=== PATIENT | male | born 1985 | race Caucasian/White ===

== ENCOUNTER 2017-03-29 19:36 | Emergency (ER) | payer SELFPAY ==
[~2017-03-29] VITALS: Ht 185.4 cm; Wt 120.2 kg
[~2017-03-29 19:36] MED LIST: AUGMENTIN 500 M1 TAB PO; AUGMENTIN 875875 MG PO; BACTRIM DS 8001 TA1 PO; BACTROBAN OINT0.9 GM; CLINDAMYCIN HC300 MG PO; CLINDAMYCIN300 MG PO; CORTISPORIN SUS10 ML OT; DAYPRO600 M1 PO; DIAZEPAM2 MG PO; EC NAPROSYN500 MG; FLEXERIL10 MG PO; Fioricet 325 MG1 TAB PO; HYDROCODONE BIT1 T11 PO; IBUPROFEN MODE200 MG PO; KEFLEX500 MG PO; MOTRIN800 MG PO; NAPROSYN500 MG PO; NAPROXEN500 MG PO; NKHM; NORCO 325 MG-51 TAB PO; PREDNICOT20 MG PO; ROBAXIN-750750 MG PO; TRAMADOL HCL50 MG PO; TRIMOX500 MG PO; VICODIN 5/500 505 MG PO; VISTARIL50 MG PO; VOLTAREN50 M1 PO
[2017-03-29] MEDS ORDERED: AUGMENTIN 875875 MG PO (20:15)
[2017-03-29] MEDS ORDERED: CLARITIN10 MG PO (20:15)
== END 2017-03-29 20:27 | disposition home or self-care (01) ==
LOC: ED 19:36
DX: J32.9 Chronic sinusitis, unspecified (principal); F17.200 Nicotine dependence, unspecified, uncomplicated; Z98.890 Other specified postprocedural states

== ENCOUNTER 2018-10-31 10:31 | Emergency (ER) | payer SELFPAY ==
[~2018-10-31] VITALS: Ht 185.4 cm; Wt 108.9 kg
[~2018-10-31 10:31] MED LIST changes: +CLARITIN10 MG PO
[2018-10-31] MEDS ORDERED: Motrin,Rufen800 MG PO (11:45)
[2018-10-31] MEDS ORDERED: KEFLEX500 M1 PO (11:45)
== END 2018-10-31 11:45 | disposition home or self-care (01) ==
LOC: ED 10:31
DX: I80.3 Phlebitis and thrombophlebitis of lower extremities, unspecified (principal); Z79.2 Long term (current) use of antibiotics; Z79.899 Other long term (current) drug therapy

== ENCOUNTER 2020-08-11 18:11 | Emergency (ER) | payer SELFPAY ==
[~2020-08-11] VITALS: Ht 185.4 cm; Wt 127.0 kg
[~2020-08-11 18:11] MED LIST changes: +KEFLEX500 M1 PO; +Motrin,Rufen800 MG PO
== END 2020-08-11 22:59 | disposition home or self-care (01) ==
LOC: ED 18:11
DX: S51.812A Laceration without foreign body of left forearm, initial encounter (principal); M79.671 Pain in right foot; Z79.899 Other long term (current) drug therapy; W45.8XXA Other foreign body or object entering through skin, initial encounter; Y93.89 Activity, other specified; Y92.89 Other specified places as the place of occurrence of the external cause; Y99.9 Unspecified external cause status

== ENCOUNTER 2021-11-17 19:38 | Emergency (ER) | payer SELFPAY | END 2021-11-17 20:11 | disposition left against medical advice (07) | LOC: ED 19:38 | DX: Z53.21 Procedure and treatment not carried out due to patient leaving prior to being seen by health care provider (principal) ==

== ENCOUNTER → 2022-02-19 | Outpatient (CLI) | payer SELFPAY | END | disposition home or self-care (01) | LOC: RESCLI 15:45 | PROVIDERS: ATTEND Internal Medicine | DX: I82.409 Acute embolism and thrombosis of unspecified deep veins of unspecified lower extremity (principal); Z98.890 Other specified postprocedural states; Z79.899 Other long term (current) drug therapy ==

== ENCOUNTER → 2022-02-19 | Outpatient (CLI) | payer SELFPAY | END | disposition home or self-care (01) | LOC: CANPRECLI → RESCLI 15:08 | PROVIDERS: ATTEND Internal Medicine | DX: I82.409 Acute embolism and thrombosis of unspecified deep veins of unspecified lower extremity (principal); Z72.89 Other problems related to lifestyle; Z82.49 Family history of ischemic heart disease and other diseases of the circulatory system; Z98.890 Other specified postprocedural states; Z79.01 Long term (current) use of anticoagulants; Z53.9 Procedure and treatment not carried out, unspecified reason ==

== ENCOUNTER → 2022-08-17 | Outpatient (CLI) | payer SELFPAY ==
[~2022-08-17] MED LIST changes: +CYCLOBENZAPRINE10 MG PO; +PREDNISONE50 MG PO
== END | disposition home or self-care (01) ==
LOC: RESCLI 11:34
PROVIDERS: ATTEND Student in an Organized Health Care Education/Training Program
DX: I82.409 Acute embolism and thrombosis of unspecified deep veins of unspecified lower extremity (principal); I10 Essential (primary) hypertension; M54.30 Sciatica, unspecified side; Z79.01 Long term (current) use of anticoagulants; Z98.890 Other specified postprocedural states; Z79.899 Other long term (current) drug therapy

== ENCOUNTER 2023-06-02 20:37 | Emergency (ER) | payer SELFPAY ==
[~2023-06-02] VITALS: Ht 185.4 cm; Wt 127.0 kg
[2023-06-02] MEDS ORDERED: AMOX-CLAV 875-1 EACH PO (20:57)
[2023-06-02] MEDS ORDERED: Amoxicillin/Clavulanate Pota 875 MG TAB PO ONE (21:00)
== END 2023-06-02 21:08 | disposition home or self-care (01) ==
LOC: ED 20:37
DX: H66.92 Otitis media, unspecified, left ear (principal); G43.909 Migraine, unspecified, not intractable, without status migrainosus; Z98.890 Other specified postprocedural states; F17.210 Nicotine dependence, cigarettes, uncomplicated

== ENCOUNTER → 2023-07-27 | Outpatient (CLI) | payer SELFPAY ==
[~2023-07-27] MED LIST changes: +AMOX-CLAV 875-1 EACH PO
== END | disposition home or self-care (01) ==
LOC: RESCLI 14:21
PROVIDERS: ATTEND Internal Medicine Hematology & Oncology
DX: I82.409 Acute embolism and thrombosis of unspecified deep veins of unspecified lower extremity (principal); I10 Essential (primary) hypertension; H66.90 Otitis media, unspecified, unspecified ear; Z82.49 Family history of ischemic heart disease and other diseases of the circulatory system; Z98.890 Other specified postprocedural states

== ENCOUNTER → 2023-08-02 | Outpatient (CLI) | payer SELFPAY | END | disposition home or self-care (01) | LOC: US 16:48 | PROVIDERS: ATTEND Internal Medicine | DX: M71.21 Synovial cyst of popliteal space [Baker], right knee (principal); I82.409 Acute embolism and thrombosis of unspecified deep veins of unspecified lower extremity ==

== ENCOUNTER 2024-02-15 17:18 | Emergency (ER) | payer SELFPAY ==
[~2024-02-15] VITALS: Ht 185.4 cm; Wt 131.5 kg
[2024-02-15] MEDS ORDERED: methylPREDNISolone sod succ 125 MG VIAL IV ONE (18:35)
[2024-02-15] MEDS ORDERED: AZITHROMYCIN 250 ML IV ONE (18:35)
[2024-02-15] MEDS ORDERED: Albuterol Sulf/Ipratropium 3 ML VIAL NEB ONE (18:35)
[2024-02-15 18:49] LABS: BASO % 0.4 % (0.0-1.0); EOS # 0.2 10*3/uL (0.0-0.4); EOS % 4.3 % (1.0-4.0); MEAN CELL VOLUME 88.4 fl (80.0-94.0); MEAN CORPUSCULAR HGB 29.3 pg (27.0-31.0); MEAN CORPUSCULAR HGB CONC 33.2 g/dl (33.0-37.0); MONO # 0.7 10*3/uL (0.1-1.0); MONO % 15.7 % (3.0-9.0); NEUT # 2.2 10*3/uL (2.3-7.9); NEUT % 46.1 % (47.0-73.0); PLATELET COUNT AUTOMATED 190 10*3/uL (130-400); RED BLOOD COUNT 4.98 10*6/uL (4.50-5.90); RED CELL DISTRI WIDTH 12.7 % (0-14.5); WHITE BLOOD COUNT 4.7 10*3/uL (4.8-10.8)
[2024-02-15 20:24] LABS: ALKALINE PHOSPHATASE 61 U/L (46-116); BUN 8 mg/dl (9-23); CHLORIDE 102 mmol/L (98-107); POTASSIUM 4.3 mmol/L (3.4-5.1); SGPT/ALT 29 U/L (5-49); TOTAL PROTEIN 7.3 gm/dL (6.0-8.0)
[2024-02-15] MEDS ORDERED: SODIUM CHLORIDE 0.9% 100 ML BAG IV ONE (20:35)
[2024-02-15] MEDS ORDERED: IOHEXOL 350 MG/ML 100 ML VIAL IV ONE ×2 (20:35→20:54)
[2024-02-15] MEDS ORDERED: SODIUM CHLORIDE 0.9% 100 ML IV ONE (20:54)
== END 2024-02-15 22:39 | disposition left against medical advice (07) ==
LOC: ED 17:18
PROVIDERS: Emergency Medicine
DX: K04.7 Periapical abscess without sinus (principal); J20.9 Acute bronchitis, unspecified; Z86.718 Personal history of other venous thrombosis and embolism; Z20.822 Contact with and (suspected) exposure to COVID-19

== ENCOUNTER → 2024-06-18 | Outpatient (CLI) | payer SELFPAY ==
[~2024-06-18] MED LIST changes: +IOHEXOL 300 MG/ML 100 ML VIAL IV ONE; +IOHEXOL 300 MG/ML 100 ML VIAL ONE
== END | disposition home or self-care (01) ==
LOC: CT 10:00
PROVIDERS: ATTEND Internal Medicine Critical Care Medicine
DX: Z12.2 Encounter for screening for malignant neoplasm of respiratory organs (principal); J45.40 Moderate persistent asthma, uncomplicated; R59.0 Localized enlarged lymph nodes; J43.9 Emphysema, unspecified; K76.0 Fatty (change of) liver, not elsewhere classified; Z87.891 Personal history of nicotine dependence; Z68.38 Body mass index [BMI] 38.0-38.9, adult

== ENCOUNTER → 2025-01-18 | Outpatient (CLI) | payer SELFPAY ==
[~2025-01-18] MED LIST changes: -IOHEXOL 300 MG/ML 100 ML VIAL ONE
[2025-01-18 16:10] LABS: BUN 11 mg/dl (9-23)
== END | disposition home or self-care (01) ==
LOC: CT 01-02 09:00 → LAB 15:27 → CT 16:00
PROVIDERS: ATTEND Internal Medicine Critical Care Medicine
DX: Z01.818 Encounter for other preprocedural examination (principal); J43.2 Centrilobular emphysema; J45.40 Moderate persistent asthma, uncomplicated; R59.0 Localized enlarged lymph nodes; Z87.891 Personal history of nicotine dependence; Z68.38 Body mass index [BMI] 38.0-38.9, adult